=== PATIENT | female | born 1985 | race Hispanic/Latino ===

== ENCOUNTER 2017-03-19 08:04 | Emergency (ER) | payer OTHER ==
[~2017-03-19] VITALS: Ht 162.6 cm; Wt 90.7 kg
[~2017-03-19 08:04] MED LIST: AUGMENTIN 875 M1 TAB PO; DEPO-PROVER150 MG/ML IM; FLUTICASON0.05 MG/A2 NAS; KEFLEX500 M1 PO; MIRALAX17 GM PO; MOBIC15 MG PO; PLAQUENIL200 MG PO; PROAIR HFA0.09 MG/Ac INH; TOPIRAMATE25 MG PO; VICODIN 5-3001 EACH PO; VISTARIL50 M1 PO; ZYRTEC10 MG PO
[2017-03-19 08:20] VITALS: BP 137/78
--- NOTE | 2017-03-19 08:57 | RADIOLOGY REPORT ---
EXAMINATION: XR WRIST, RIGHT CLINICAL INFORMATION: Pain, crepitus, rule out fracture. COMPARISON: None TECHNIQUE: AP, lateral, and oblique views of the right wrist. Dedicated scaphoid view was also provided. FINDINGS: Bone mineral density is maintained without evidence of fracture or dislocation. No focal osseous lesions are seen. Joint space is maintained without productive or erosive changes. IMPRESSION: Unremarkable examination.
--- NOTE | 2017-03-19 09:05 | ED HAND/WRIST INJURY COMPLAINT ---
History of Present Illness General Chief Complaint: Hand or Wrist Injury Stated Complaint: RIGHT WRIST PAIN Source: patient Exam Limitations: no limitations Vital Signs & Intake/Output Vital Signs & Intake/Output Vital Signs Date Time Temp Pulse Resp B/P B/P Pulse O2 O2 Flow FiO2 Mean Ox Delivery Rate 03/19 0820 96.0 96 20 137/78 98 Room Air Room Air Allergies Coded Allergies: MDX - Sumatriptan (SUMATRIPTAN) (PT REPORTS FELT LIKE EYES WERE BULGING, ITCHING ALL OVER 05/20/15) Reconcile Medications Albuterol Sulfate (Proair Hfa) 0.09 MG/Actuation KM 2 PUFF INH PRN ASTHMA ( Reported) AMOXICILLIN/POTASSIUM CLAV (Augmentin 875-125 Tablet) 875 MG/125 MG TAB 1 TAB PO BID ANTIBIOTIC (Reported) Cephalexin (Keflex) 500 MG CAPSULE 1 TAB PO 4 TIMES/DAY CELLULTIIS Cetirizine Hydrochloride (Zyrtec) 10 MG TAB 1 TAB PO DAILY ALLERGIES ( Reported) Fluticasone Propionate 50 MCG/ACTUATION SPRAY.SUSP 1 SPRAY ASIM DAILY CONGESTION (Reported) Hydrocodone/Acetaminophen (Vicodin 5-300 MG Tablet) 1 EACH TABLET 1 TAB PO Q6HR PRN PAIN Hydroxychlorquine (Plaquenil) 200 MG TABLET 1 TAB PO BID JOINT INFLAMMATION ( Reported) Hydroxyzine Pamoate (Vistaril) 50 MG CAPSULE 1 CAP PO TID PRN ITCHING Medroxyprogesterone Acetate (Depo-Provera) 150 MG/ML SYRINGE 1 ML IM Q3M CONTROL (Reported) Meloxicam (Mobic) 15 MG TAB 1 TAB PO DAILY PAIN Polyethylene Glycol 3350 (Miralax) 17 GRAM/DOSE POWDER 17 GM PO QPM REGULARITY - BOWEL (Reported) mix with water, juice, soda, coffee or tea Topiramate 25 MG TABLET 1 TAB PO DAILY MIGRAINE PREVENTION (Reported) Triage Note: PT TO ED WITH C/O "MY RIGHT WRIST POPPED, BOTH MY WRISTS POP ALL THE TIME, BUT THIS TIME IT DIDN'T GO BACK TO NORMAL". LAST MENSES: DEPOT Triage Nurses Notes Reviewed? yes : No Patient currently breastfeeds: No HPI: Patient presents for evaluation of constant right wrist pain that started abruptly about 1 week ago after "feeling a pop". She states she "popped it back in", but since then has had a moderate "foreign body feeling" over the distal ulna, anteriorly. The pain worsens with typing on the job. Patient has chronic ulnar pain that seems unchanged from baseline. Past History Travel History Traveled to [place] past 21 day No Medical History Any Pertinent Medical History? see below for history Neurological: migraine EENT: NONE Cardiovascular: MURMUR Respiratory: asthma Gastrointestinal: constipation, HEMMARROIDS Hepatic: NONE Renal: NONE Musculoskeletal: JOINT PAIN Psychiatric: NONE Endocrine: NONE Blood Disorders: NONE Cancer(s): NONE LINUX ADMINISTRATOR/Reproductive: ABNORMAL CERVICAL CELLS. Surgical History Surgical History: appendectomy, Psychosocial History What is your primary language Swedish Tobacco Use: Never used ETOH Use: denies use Illicit Drug Use: denies illicit drug use Family History Hx Contributory? No Review of Systems Review of Systems Constitutional: Reports: no symptoms. EENTM: Reports: no symptoms. Respiratory: Reports: no symptoms. Cardiovascular: Reports: no symptoms. GI: Reports: no symptoms. Genitourinary: Reports: no symptoms. Musculoskeletal: Reports: see HPI. Skin: Reports: no symptoms. Neurological/Psychological: Reports: no symptoms. Hematologic/Endocrine: Reports: no symptoms. Immunologic/Allergic: Reports: no symptoms. All Other Systems: Reviewed and Negative Physical Exam Physical Exam Hand Left: normal inspection Hand Right: SEE BELOW Comments: Gen.: Well-nourished, well-developed, no acute respiratory distress. Head: Normocephalic, atraumatic. Eyes: Normal inspection bilaterally Ears: Normal inspection bilaterally Nose: Normal inspection, nasal cannula in place Throat/mouth : Moist mucosa Neck: Supple, full range of motion, no goiter Heart: Regular rate and rhythm Lungs: Quiet respirations Back: Normal range of motion Extremities: Right wrist: Normal range of motion, tenderness and mild soft tissue swelling of the distal ulna, right hand: Neurovascularly intact. Normal right radial pulse. Neurologic: Cranial nerves grossly intact, speech is clear Skin: warm and dry Psychiatric: Calm, cooperative, no apparent delusions or hallucinations Progress Differential Diagnosis: fracture, sprain Plan of Care: Orders Procedure Date/time Status Durable Medical Equipment 03/19 0946 Active Splint, anti-inflammatory, follow up with PCP (DEV BROOKS,KEN Don) Diagnostic Imaging: Discussed w/RAD: Radiology Read. Radiology Impression: PATIENT: LENIN COOL PRESENT AGE: 31 PATIENT ACCOUNT NO: [id number] : 86 LOCATION: [facility] ORDERING PHYSICIAN: KEN STEIN DO (TBS) SERVICE DATE: 03/19/17 EXAM TYPE: RAD - XRY-WRIST COMPLETE-RIGHT EXAMINATION: XR WRIST, RIGHT CLINICAL INFORMATION: Pain, crepitus, rule out fracture. COMPARISON: None TECHNIQUE: AP, lateral, and oblique views of the right wrist. Dedicated scaphoid view was also provided. FINDINGS: Bone mineral density is maintained without evidence of fracture or dislocation. No focal osseous lesions are seen. Joint space is maintained without productive or erosive changes. IMPRESSION: Unremarkable examination. DICTATED BY: AYDIN OTTO MD DATE/TIME DICTATED:03/19/17851 ELECTROLYTIC DE SCALER:GABBY DATE/TIME TRANSCRIBED:03/19/17851 CONFIDENTIAL, DO NOT COPY WITHOUT APPROPRIATE AUTHORIZATION. <Electronically signed in Other Vendor System> SIGNED BY: AYDIN OTTO MD 03/19/17856 Departure Departure Disposition: HOME OR SELF CARE Condition: Stable Clinical Impression Primary Impression: Right wrist sprain Qualifiers: Encounter type: initial encounter Qualified Code: S63.501A - Unspecified sprain of right wrist, initial encounter Referrals: MADHU BROOKS,YASHIRA Yip (PCP/Family) Additional Instructions: Wrist splint as needed. Voltaren as prescribed for your wrist pain. Follow-up with your primary care doctor next week for reevaluation. Return if any concerns or sudden worsening. Avoid heavy lifting or other exertion. Please note that there might be incidental findings in your evaluation that are unrelated to the current emergency department visit. Please notify your primary care doctor about this emergency department visit in order to obtain and review all of the testing performed so that these incidental findings can be monitored as needed. If you had an x-ray performed, please understand that some fractures may not be seen on the initial set of x-rays. If your symptoms persist you might need a repeat set of x-rays to check for such a fracture. If you had a laceration evaluated, please understand that foreign bodies such as glass or wood may not be visible to the naked eye or on plain x-rays. If the wound becomes red, swollen, increasingly more painful or if there is any drainage from the wound, please have it reevaluated by a physician for the possibility of a retained foreign body. Thank you for choosing the [facility] Emergency [facility] for your care. It was a pleasure to serve you today. Ken Aguilar M.D. [facility] Departure Forms: Customer Survey General Discharge Information Prescriptions: Current Visit Scripts Diclofenac Sodium 1 TAB PO BID PRN PAIN #14 TAB
[2017-03-19] MEDS ORDERED: DICLOFENAC SODI75 M2 PO (09:12)
== END 2017-03-19 09:38 ==
LOC: ERH 08:04
DX: S63.501A Unspecified sprain of right wrist, initial encounter (principal); X58.XXXA Exposure to other specified factors, initial encounter; Y92.9 Unspecified place or not applicable; Y93.9 Activity, unspecified
CPT/HCPCS: 73110-RT